=== PATIENT | male | born 1960 | race Caucasian/White ===

== ENCOUNTER → 2019-10-14 13:10 | Outpatient (CLI) | payer OTHER, SELFPAY | PROVIDERS: Visit Provider Urology | DX: N40.0 Benign prostatic hyperplasia without lower urinary tract symptoms (principal) | CPT/HCPCS: 36415; G0103 ==

== ENCOUNTER → 2019-12-30 12:36 | Outpatient (CLI) | payer OTHER, SELFPAY ==
--- NOTE | 2019-12-30 12:39 | XR_ITS ---
PROCEDURE: XR HAND RT MIN 3V CLINICAL INDICATION: right hand pain/ ganglion cyst COMPARISON: No exams were available for comparison FINDINGS: No fracture or dislocation. No lytic or blastic change. There is normal mineralization. The joint spaces are well-preserved. No significant degenerative/arthritic changes. No erosive changes evident. Other findings:None. IMPRESSION: Negative right hand Dictated by: Roney Laws MD 12/30/2019 16:10 Electronically signed by Roney Laws MD in [place] 12/30/2019 16:10
--- NOTE | 2019-12-30 15:32 | ECG_ITS ---
APPROVED REPORT Exam: Resting ECG HR:66 bpm ECG Measurements Heart Rate 66 AXES OK 174 P 40 QRSd 80 QRS 2 QT 398 T 31 QTc 417 <Conclusion> Normal sinus rhythm Normal ECG Electronically signed by : Win Stearns, 12/31/2019 16:11:30
== END ==
PROVIDERS: PCP Internal Medicine Adolescent Medicine; Visit Provider Orthopaedic Surgery
DX: M79.641 Pain in right hand (principal)
CPT/HCPCS: 73130; 93005

== ENCOUNTER → 2019-12-30 14:47 | Outpatient (CLI) | payer OTHER, SELFPAY ==
--- NOTE | 2019-12-30 14:52 | XR_ITS ---
PROCEDURE: XR CHEST 2V CLINICAL HISTORY: preop evaluation COMPARISON: No exams were available for comparison FINDINGS: The cardiomediastinal silhouette and pulmonary vascularity are within normal limits. Hyper lucency is present in the right apex consistent with bullous change. This had a similar appearance on the previous exam. The remaining lungs are clear. No acute bony abnormalities. IMPRESSION: Right apical bulla otherwise negative. No change with no acute finding Dictated by: Roney Laws MD 12/30/2019 15:41 Electronically signed by Roney Laws MD in [place] 12/30/2019 15:41
[2019-12-30 15:43] LABS: Basophils % 0.7 % (0.1-2.0); Eosinophils # 0.1 K/mm3 (0.0-0.4); Eosinophils % 1.8 % (0.1-12.0); Hematocrit 47.6 % (42.0-52.0); Hemoglobin 15.5 g/dL (14.1-18.0); Lymphocytes # 2.2 K/mm3 (0.7-4.5); Lymphocytes % 34.8 % (10-50); Mean Corpuscular HGB Conc 32.7 g/dL (31.8-35.4); Mean Corpuscular Hemoglobin 29.7 pg (27.0-31.2); Mean Corpuscular Volume 90.9 fl (80-94); Mean Platelet Volume 9.1 fl (7.4-10.4); Monocytes # 0.4 K/mm3 (0.1-1.0); Monocytes % 6.5 % (1.7-9.3); Neutrophils # 3.5 K/mm3 (1.8-7.8); Neutrophils % 56.1 % (37.0-80.0); Platelet Count 240 K/mm3 (142-424); Red Blood Count 5.24 M/mm3 (4.60-6.20); White Blood Count 6.3 K/mm3 (4.8-10.8)
[2019-12-30 17:04] LABS: Alanine Aminotransferase 18 U/L (12-78); Albumin Level 4.5 g/dl (3.5-5.0); Albumin/Globulin Ratio 1.4 (1.1-1.8); Alkaline Phosphatase 81 U/L (38-126); Anion Gap 13.5 mEq/L (5-15); Aspartate Amino Transferase 23 U/L (17-59); Bilirubin,Total 0.5 mg/dl (0.2-1.3); Blood Urea Nitrogen 14 mg/dl (9-20); Calcium 9.9 mg/dl (8.4-10.2); Carbon Dioxide 29 mmol/L (22.0-30.0); Chloride 100 mmol/L (98-107); Estimated Glomerular Filt Rate 76 ml/min (>60); GFR (African American) 92 ML/MIN (>60); Globulin 3.3 g/dL (1.3-3.2); Glucose 85 mg/dl (74-100); Potassium 4.5 mmoL/L (3.5-5.1); Sodium 138 mmol/L (136-145); Total Protein,Serum 7.8 g/dl (6.3-8.2)
== END ==
PROVIDERS: PCP Internal Medicine Adolescent Medicine; Visit Provider Orthopaedic Surgery
DX: Z01.818 Encounter for other preprocedural examination (principal); M79.641 Pain in right hand; M25.841 Other specified joint disorders, right hand
CPT/HCPCS: 36415; 71046; 80053; 85025

== ENCOUNTER → 2020-10-14 11:52 | Outpatient (CLI) | payer OTHER, SELFPAY ==
[2020-10-15 09:43] LABS: PSA, Free 0.08 ng/mL; Prostate Specific Ag 0.3 ng/mL (0.0-4.0)
== END ==
PROVIDERS: Visit Provider Urology
DX: N40.1 Benign prostatic hyperplasia with lower urinary tract symptoms (principal); N13.8 Other obstructive and reflux uropathy
CPT/HCPCS: 36415; 84153; 84154

== ENCOUNTER → 2021-09-01 19:03 | Outpatient (CLI) | payer OTHER, SELFPAY ==
[2021-09-01 19:57] LABS: Chloride 104 mmol/L (98-107); Sodium 139 mmol/L (136-145)
[2021-09-01 19:58] LABS: Potassium 4.7 mmoL/L (3.5-5.1)
[2021-09-01 20:00] LABS: Alanine Aminotransferase 16 U/L (12-78); Albumin Level 4.1 g/dl (3.5-5.0); Albumin/Globulin Ratio 1.2 (1.1-1.8); Alkaline Phosphatase 89 U/L (38-126); Anion Gap 11.7 mEq/L (5-15); Aspartate Amino Transferase 25 U/L (17-59); Bilirubin,Total 0.5 mg/dl (0.2-1.3); Blood Urea Nitrogen 19 mg/dl (9-20); Carbon Dioxide 28 mmol/L (22.0-30.0); Cholesterol 277 mg/dl (140-200); Estimated Glomerular Filt Rate 86 ml/min (>60); GFR (African American) 103 ML/MIN (>60); Globulin 3.5 g/dL (1.3-3.2); Total Protein,Serum 7.6 g/dl (6.3-8.2); Triglycerides 183 mg/dl (30-150); VLDL Cholesterol 37 mg/dL (0-40)
[2021-09-01 20:01] LABS: Calcium 9.3 mg/dl (8.4-10.2); Chol/HDL Ratio 6.4 (1-3.5); Glucose 98 mg/dl (74-100); HDL Cholesterol 43 mg/dl (40-60)
== END ==
PROVIDERS: Visit Provider Internal Medicine Adolescent Medicine
DX: I10 Essential (primary) hypertension (principal); E78.5 Hyperlipidemia, unspecified
CPT/HCPCS: 80053; 80061

== ENCOUNTER → 2021-11-03 13:51 | Outpatient (CLI) | payer OTHER, SELFPAY ==
[2021-11-03 15:41] LABS: Prostate Specific Ag Screen 0.4 ng/ml (0.0-4.0)
== END ==
PROVIDERS: PCP Internal Medicine Adolescent Medicine; Visit Provider Urology
DX: N40.1 Benign prostatic hyperplasia with lower urinary tract symptoms (principal); Z12.5 Encounter for screening for malignant neoplasm of prostate
CPT/HCPCS: 36415; G0103

== ENCOUNTER 2023-03-20 07:21 | Day surgery (SDC) | payer OTHER, SELFPAY ==
[2023-03-19 10:06] VITALS: BMI 24.1
[2023-03-20 07:41] VITALS: BP 130/81; PULSE 89; RESP 17; TEMP 36.1; O2SAT 93
--- NOTE | 2023-03-20 08:22 | P.PCN_ITS ---
Procedure: Date: 03/20/23 Patient Date of :: 1960 Procedure Performed:: Esophagogastroduodenoscopy with biopsy Colonoscopy Indications:: History of Max's esophagus History of colon polyps Note: His last esophagogastroduodenoscopy/colonoscopy was in December 2019. His gastroesophageal junction was at 42 cm and he did have a very small sliding hiatal hernia noted. A calcified polyp at D2/D3 was biopsied. Pathology benign. No visual Max's-type changes were noted; however, biopsies did reveal metaplasia without dysplasia. Hemorrhoidal cushions, sigmoid diverticulosis, poor relaxation, and a moderate bowel preparation were noted on colonoscopy. Right colon polyps were excised. Performing Provider:: Phani Dorado MD Referring Provider:: . Sedation:: Monitored anesthesia care Procedure:: After informed consent was obtained the patient was taken to the endoscopy suite. Sedation ensued after the patient was transferred to the left lateral decubitus position. Pulse, blood pressure, and oxygen saturation were monitored throughout the procedure. The endoscope was advanced beyond the duodenal bulb. Retroflexion within the gastric lumen was accomplished. The gastroscope was ca refully removed. Digital rectal exam revealed no significant abnormality. The colonoscope was placed in position. The entire colon was evaluated. The colonoscope was carefully removed and the patient was transferred to recovery in stable condition. Please see findings and specimens below for detail. Findings:: Gastroesophageal junction at 42 cm Sliding hiatal hernia No obvious Max's Bowel preparation fair to moderate Hemorrhoids Scattered (most pronounced in sigmoid) diverticulosis Specimens:: Antral biopsy Multiple distal esophageal biopsies at 41 cm Recommendations:: Follow-up pathology Continue proton pump inhibition Repeat EGD in 2 years (pending results of pathology) Repeat colonoscopy in 3-5 years Complications:: No immediate Estimated blood obtained (mL): 1
[2023-03-20 08:32] VITALS: O2SAT 98
[2023-03-20 09:24] VITALS: BP 89/57; PULSE 58; RESP 14; TEMP 36.1; O2SAT 93
[2023-03-20 09:34] VITALS: BP 100/54; PULSE 52; RESP 15; O2SAT 96
[2023-03-20 09:44] VITALS: BP 107/66; PULSE 57; RESP 17; O2SAT 97
[2023-03-20 09:54] VITALS: BP 106/81; PULSE 52; RESP 16; TEMP 36.6; O2SAT 99
--- NOTE | 2023-03-20 10:32 | P.PN_ITS ---
[facility] Disclaimer: The information contained in this section may have been updated after the patient was seen, as this information can be updated by other users. Medical History Allergies Enlarged prostate Hemorrhoid History of cataract History of diverticulitis History of gastroesophageal reflux (GERD) Hyperlipidemia Hypertension Surgical History History of cataract surgery History of removal of cyst Family History Other Family history of diabetes mellitus type II No significant family history Social History Smoking Status: Never smoker alcohol intake: never counseling provided: none substance use type: denies use current occupational status: employed Travel in the last 8 weeks: None household members: spouse housing: house current occupation: [employer] caffeine: Yes [facility] [employer] Anesthesia Checklist Patient Identification Patient Identification: Arm Band and Family Structural Data Admitted From: Home Planned Operative Procedure/s: EGD, COLONOSCOPY. Consent for Planned Operative Procedure(s) Verified: Yes Verified Documents: Surgical Consent and History and Physical NPO Status Verified Time NPO: 00:00 Additional verifications Patient : No Anesthesia Reactions: No Hx Blood Transfusions: No Blood Transfusion Reaction: No Cephalosporin Allergy: No Previous Colonoscopy: Yes Airway Assessment C-Spine Mobility Assessed: Yes TMJ Mobility Assessed: Yes Dentition: Good Dentition Neurological Assessment Level of Consciousness: Awake, Alert, Appropriate and Follows Commands Hx Seizures: No Numbness or tingling in extremities: No Anesthesia Plan Anesthesia Risk discussed: Yes ASA Class: II Anesthesia Type: MAC
== END 2023-03-20 10:00 | disposition home or self-care (01) ==
PROVIDERS: PCP Internal Medicine Adolescent Medicine; Visit Provider Surgery
PROC: 0DJ08ZZ Inspection of Upper Intestinal Tract, Via Natural or Artificial Opening Endoscopic (ICD-10-PCS; CPT 43235; principal; 2023-03-20 08:30)
DX: Z12.11 Encounter for screening for malignant neoplasm of colon (principal); Z86.010 Personal history of colon polyps; K31.9 Disease of stomach and duodenum, unspecified; K57.30 Diverticulosis of large intestine without perforation or abscess without bleeding; K44.9 Diaphragmatic hernia without obstruction or gangrene; Z79.899 Other long term (current) drug therapy; K64.8 Other hemorrhoids
CPT/HCPCS: 43239; 45378; J2704

== ENCOUNTER → 2023-04-04 07:49 | Outpatient (CLI) | payer OTHER, SELFPAY ==
--- NOTE | 2023-04-04 07:49 | FL_ITS ---
FINAL REPORT CLINICAL HISTORY: dysphagia FINDINGS: ESOPHAGRAM HISTORY: Dysphagia. PROCEDURE: The patient ingested barium. Effervescent crystals were also administered. Spot and overhead films were obtained. Fluoroscopy time: 1 minute 16 seconds. 14 radiographs were obtained. FINDINGS: The esophagus is normal. There is a small sliding type hiatal hernia. There is no gastroesophageal reflux. Peristalsis is normal. A 13 mm barium tablet passes through the esophagus and into the stomach without delay. IMPRESSION: Small sliding-type hiatal hernia. Films reviewed , interpreted and dictated by Dr. Alvarado. Transcribed by Lee Diaz PA-C. Reviewed, Interpreted and Dictated by Derek Alvarado MD Transcribed by SEDRICK Araujo Authenticated and [facility]
== END ==
PROVIDERS: PCP Internal Medicine Adolescent Medicine; Visit Provider Surgery
DX: R13.10 Dysphagia, unspecified (principal)
CPT/HCPCS: 74220

== ENCOUNTER → 2023-04-12 12:47 | Outpatient (CLI) | payer OTHER, SELFPAY ==
--- NOTE | 2023-04-12 12:50 | FL_ITS ---
FINAL REPORT CLINICAL HISTORY: 1.32 fl time difficulty swallowing FINDINGS: MODIFIED BARIUM SWALLOW History: Dysphagia FINDINGS: Fluoroscopy was provided for the speech pathologist to evaluate the swallowing mechanism. The patient was given several different consistencies of barium while the swallow was visualized fluoroscopically. The report of the speech pathologist should be consulted prior to making dietary decisions. FLUOROSCOPY TIME: 1.3 minutes IMPRESSION: Modified barium swallow under fluoroscopic guidance. Please see the report of the speech pathologist for Dietary recommendations. Films reviewed , interpreted and dictated by Dr. Elizabeth Transcribed by Jax Chen PA-C. Reviewed, Interpreted and Dictated by Blake Elizabeth III, MD Transcribed by SEDRICK Doan Authenticated and [facility]
--- NOTE | 2023-04-12 14:14 | HMH.SLMBS2 ---
Speech & Language Evaluation Speech/Language Mod Barium Swallow Start: 04/12/23 13:48 Freq: once Status: Complete Protocol: Document 04/12/23 13:49 LING (Rec: 04/12/23 14:14 LING [id number]) General Information General Current Food Consistency Regular,Thin Liquids Dentition Poor Dentition Oxygen Status Room Air Facial Symmetry Patient Baseline Patient Orientation Person,Place,Time,Situation Ability to Follow Directions Excellent Communication Ability No Impairment MBS Recommendations Diet Dietary Recommendations Regular,Thin Liquids Treatment/Strategies Strategy/Precaution Recommend Sitting Upright (90 deg),Small Bites and Sips,Alternate Liquids/Solids Mod Barium Swallow Impressions Summary and Impressions Oral Phase Impression Minimal Impairment Oral Phase Summary Minimal oral dysfunction noted on MBSS. Premature spillage of thin liquids to the valleculae noted x1 with thin liquid wash after regular solid. Likely 2' mild back of tongue fatigue. Mastication was WFL, AP transit was timely , no significant oral residue noted. Pharyngeal Phase Impression Minimal Impairment Pharyngeal Phase Summary Minimal pharyngeal impairment. Adequate airway protection was noted with all consistencies trialed. Decreased epiglottic inversion 2' decreased hyolaryngeal movement and elongated epiglottis. Mild vallecular residue with puree and moderate with solids 2' decreased epiglottic inversion and decreased pharyngeal constriction. Speech/Language MBS Assessment/Goals/Plan Assessment Date of Evaluation: 04/12/23 Evaluation Type Initial Certification Assessment/Problems Pt c/o coughing and sore throat. Does Patient Qualify for Service No Qualify/Failure Comment Given results of MBSS, no further skilled ST services are warranted at this time. Recommendations PHYSICIAN CERTIFICATION: The specified therapy services are required, authorized, and reviewed every 30 days. Diet Recommendations Normal Liquid Type Recommen
== END ==
PROVIDERS: PCP Internal Medicine Adolescent Medicine; Visit Provider Surgery
DX: K22.70 Barrett's esophagus without dysplasia (principal)
CPT/HCPCS: 70371; 92611

== ENCOUNTER 2024-07-13 18:56 | Emergency (ER) | payer MEDICARE, OTHER, SELFPAY ==
[2024-07-13 18:57] VITALS: BP 141/79; PULSE 71; RESP 17; TEMP 36.7; O2SAT 98; BMI 24.3
--- NOTE | 2024-07-13 19:55 | ED_ITS ---
Discharge Plan Disposition Patient Disposition: Home, Self-Care Condition: Good Prescriptions Prescriptions: No Action diphenhydramine HCl [Benadryl Allergy] 25 mg tablet 25 mg PO QHS PRN (Reason: allergy symptoms) docusate sodium [Stool Softener] 50 mg capsule 50 mg PO QHS rosuvastatin [Crestor] 5 mg tablet 20 mg PO DAILY tamsulosin [Flomax] 0.4 mg capsule 0.4 mg PO DAILY omeprazole 40 mg capsule,delayed release(DR/EC) 40 mg PO DAILY vwojukgua-vwkfunha-vrrzt-w.pet [Preparation H Maximum Strength] 0.25-1 % cream 1 applic [place] BID finasteride 5 mg tablet 5 mg PO DAILY amlodipine 10 MG tablet 10 mg PO DAILY calcium polycarbophil 625 MG tablet 2 tab PO DAILY cholecalciferol (vitamin D3) 1,000 UNIT capsule 1,000 unit PO DAILY Referrals Follow up/Referrals: Yao Monroe DO [Staff Physician] - See instructions Win Stearns MD [Primary Care Provider] - See instructions Activity Restrictions/Add. Instructions Additional Instructions/Restrictions: Please call in the morning to make a follow-up with orthopedics. Please wear your brace until seen by orthopedics. Return to ER for any worsening signs or symptoms as needed. Clinical Impressions Clinical Impression: Fracture of triquetrum of left wrist Qualifiers: Encounter type: initial encounter Fracture type: closed Fracture alignment: nondisplaced Qualified Code(s): S62.115A - Nondisplaced fracture of triquetrum [cuneiform] bone, left wrist, initial encounter for closed fracture Instructions Patient Instructions: DI for Wrist Fracture Print Language Print Language: Faroese Discharge ED Provider: Ck Colby General Adult HPI <SEDRICK Nuñez - Last Filed: 07/13/24 22:25> General Chief complaint: Extremity Injury, Upper Stated complaint: [id number] LT hand inj Time Seen by Provider: 07/13/24 19:55 History of Present Illness HPI narrative: Patient presents for left hand injury. Patient was putting up hay and abruptly got stuck with a piece of equipment and he jammed my hand . Patient however finished his workday and presented for evaluation. He reports painful range of motion particularly at the base of the hand/wrist. He denies any numbness or tingling. Related Data Home Medications ?Medication ?Instructions ?Recorded ?Confirmed diphenhydramine HCl 25 mg tablet 25 mg PO QHS PRN allergy symptoms 03/13/18 04/25/23 (Benadryl Allergy) docusate sodium 50 mg capsule 50 mg PO QHS stool softener 03/13/18 04/25/23 (Stool Softener) amlodipine 10 mg tablet 10 mg PO DAILY blood pressure 04/02/18 04/25/23 calcium polycarbophil 625 mg tablet 2 tab PO DAILY bowel regulation 04/04/18 04/25/23 cholecalciferol (vitamin D3) 25 1,000 unit PO DAILY Supplement 04/04/18 04/25/23 mcg (1,000 unit) capsule omeprazole 40 mg capsule,delayed 40 mg PO DAILY GERD 06/25/18 04/25/23 release phenylephrine 0.25 %-pramoxine 1 1 applic [place] BID rash 06/25/18 04/25/23 %-glycerin-wh.petrolatum rectal cream (Preparation H Maximum Strength) tamsulosin 0.4 mg capsule (Flomax) 0.4 mg PO DAILY prostate 06/25/18 04/25/23 finasteride 5 mg tablet 5 mg PO DAILY urinary retention 03/20/23 04/25/23 rosuvastatin 5 mg tablet (Crestor) 20 mg PO DAILY Cholesterol 03/28/23 04/25/23 Allergies Allergy/AdvReac Type Severity Reaction Status Date / Time acetaminophen [From Tylenol] Allergy Unknown swelling Verified 04/25/23 09:11 ibuprofen Allergy Unknown Swelling Verified 04/25/23 09:11 naproxen [From Aleve] Allergy Unknown Swelling Verified 04/25/23 09:11 pain pills Allergy swelling Uncoded 04/25/23 09:11 [facility] <SEDRICK Nuñez - Last Filed: 07/13/24 22:25> [facility] Disclaimer: The information contained in this section may have been updated after the patient was seen, as this information can be updated by other users. Medical History Allergies Enlarged prostate Hemorrhoid History of cataract History of diverticulitis History of gastroesophageal reflux (GERD) Hyperlipidemia Hypertension Surgical History History of cataract surgery History of colonoscopy History of removal of cyst RIGHT HAND Family History Other Family history of diabetes mellitus type II No significant family history Social History Smoking Status: Former smoker tobacco type: smokeless tobacco alcohol intake: never counseling provided: none substance use type: denies use current occupational status: employed Travel in the last 8 weeks: None household members: spouse housing: house current occupation: [employer] caffeine: Yes <SEDRICK Nuñez - Last Filed: 07/13/24 22:25> ROS Obtained: Yes Systems reviewed as appropriate & no additional complaints except as documented Physical Exam <SEDRICK Nuñez - Last Filed: 07/13/24 22:25> General General appearance: alert and in no apparent distress Respiratory Respiratory exam: Present normal lung sounds bilaterally Cardiovascular Cardiovascular exam: Present regular rate Neurological Exam Neurological exam: Present alert and oriented X3 Medical Decision Making <SEDRICK Nuñez - Last Filed: 07/13/24 22:25> Myron Inquiry Pt receiving controlled substance: No Vital Signs: 07/13/24 18:57 07/13/24 22:34 Temperature 98.1 F 98 F Temperature Source Oral Oral Pulse Rate 68 Pulse Rate [Left Radial] 71 Respiratory Rate 17 16 Blood Pressure 138/72 Blood Pressure [Left Arm] 141/79 H Blood Pressure Mean [Left Arm] 99 Blood Pressure Source [Left Arm] Automatic Cuff Blood Pressure Position [Left Arm] Sitting 02 Sat by Pulse Oximetry 98 Oxygen Delivery Method Room Air Room Air Orders (Tests/Meds): ORDERS Category Date Time Status CT wrist LT wo con Stat Cat Scan 07/13/24 21:58 Completed Hand XR left minimum 3 views [XR hand LT min 3V] Stat Exams 07/13/24 20:01 Completed Wrist XR left minimum 3 views [XR wrist LT min 3V] Stat Exams 07/13/24 20:01 Completed Medical Decision Narrative: In summary patient is a 64-year-old male who presents to the emergency department for evaluation of left hand injury. Patient is hemodynamically stable upon arrival, afebrile. Physical exam is remarkable for swelling at the base on the dorsum aspect of his left hand with no palpable bony deformity. Patient has painful but full range of motion at both the wrist and the fingers. He is neurovascular intact distally. Differential diagnosis includes sprain versus fracture. Initial workup will be conducted with plain film x-rays. Initial interventions were considered however patient declined any anti- inflammatories or pain medicine. Initial workup reviewed by me [hematologic labs are remarkable for... Imaging remarkable for... Urinalysis remarkable for]. Upon repeat evaluation [patient had acceptable resolution of symptoms, had persistent pain for which additional interventions were conducted (describe interventions), tolerated p.o., was ambulatory, etc.]. Given this [patient is appropriate for discharge at this time and will be discharged with a prescription for... The case was discussed with hospital medicine regarding management and they will admit the patient their service for continued evaluation at this time... Etc.] <Ck Colby MD - Last Filed: 07/15/24 16:33> Vital Signs: 07/13/24 18:57 07/13/24 22:34 Temperature 98.1 F 98 F Temperature Source Oral Oral Pulse Rate 68 Pulse Rate [Left Radial] 71 Respiratory Rate 17 16 Blood Pressure 138/72 Blood Pressure [Left Arm] 141/79 H Blood Pressure Mean [Left Arm] 99 Blood Pressure Source [Left Arm] Automatic Cuff Blood Pressure Position [Left Arm] Sitting 02 Sat by Pulse Oximetry 98 Oxygen Delivery Method Room Air Room Air Orders (Tests/Meds): ORDERS Category Date Time Status CT wrist LT wo con Stat Cat Scan 07/13/24 21:58 Completed Hand XR left minimum 3 views [XR hand LT min 3V] Stat Exams 07/13/24 20:01 Completed Wrist XR left minimum 3 views [XR wrist LT min 3V] Stat Exams 07/13/24 20:01 Completed Medical Decision Narrative: In summary patient is a 64-year-old male who presents to the emergency department for evaluation of left hand injury. Patient is hemodynamically stab le upon arrival, afebrile. Physical exam is remarkable for swelling at the base on the dorsum aspect of his left hand with no palpable bony deformity. Patient has painful but full range of motion at both the wrist and the fingers. He is neurovascular intact distally. Differential diagnosis includes sprain versus fracture. Initial workup will be conducted with plain film x-rays. Initial interventions were considered however patient declined any anti-inflammatories or pain medicine. Earnestine: I assumed primary responsibility for this patient. Initial workup reviewed by me, patient has what appears to be triquetral fracture on lateral wrist. Orthopedic surgery was contacted and case was discussed, recommended CT wrist for further management, CT wrist was obtained and independently inte rpreted for triquetral fracture, consistent with x-rays. Patient was placed in removable prefabricated splint for his wrist. Patient requires orthopedic bracing due to weakness or deformity requiring stabilization. The use of this brace will benefit the patient's functionality and prevent further injury. I was consulted by the [facility], and we discussed the complexity of the problems being addressed. I approved the treatment and management plan for this patient's care in the Emergency Department, thus performing a substantive portion of the medical decision making. Ck Colby MD Critical Care <SEDRICK Nuñez - Last Filed: 07/13/24 22:25> Critical Care Time Critical Care Time: No
--- NOTE | 2024-07-13 20:01 | XR_ITS ---
PROCEDURE INFORMATION: Exam: XR Left Hand Exam date and time: 07/13/2024 8:13 PM Age: 64 years old Clinical indication: Pain; Wrist; Left; Additional info: Injury, pain, swelling TECHNIQUE: Imaging protocol: Radiologic exam of the left hand. Views: 3 or more views. COMPARISON: No relevant prior studies available. FINDINGS: Bones/joints: Mild radiocarpal joint space narrowing. No fracture or dislocation. Soft tissues: Dorsal wrist soft tissue swelling. IMPRESSION: Soft tissue swelling.
--- NOTE | 2024-07-13 20:01 | XR_ITS ---
PROCEDURE INFORMATION: Exam: XR Left Wrist Exam date and time: 07/13/2024 8:14 PM Age: 64 years old Clinical indication: Pain; Wrist; Left; Additional info: Injury, pain, swelling TECHNIQUE: Imaging protocol: Radiologic exam of the left wrist. Views: 3 or more views. COMPARISON: CR XR HAND LT MIN 3V 07/13/2024 8:13 PM FINDINGS: Bones/joints: Mild radiocarpal joint space narrowing. Along the dorsal aspect of the proximal wrist is a small bone fragment estimated to measure approximately 4 mm in size. No subluxation or dislocation. Soft tissues: Dorsal wrist soft tissue swelling. IMPRESSION: Partially evaluated proximal carpal avulsion fracture. Consider CT scan to evaluate source of the bone fragment
--- NOTE | 2024-07-13 21:58 | CT_ITS ---
PROCEDURE INFORMATION: Exam: CT Left Upper Extremity Without Contrast, Wrist Exam date and time: 07/13/2024 10:21 PM Age: 64 years old Clinical indication: Abnormal findings; Abnormal imaging study of the limbs; Left wrist; Additional info: Left wrist injury, abnormal wrist x-ray TECHNIQUE: Imaging protocol: Computed tomography of the left upper extremity without contrast. Exam focused on the wrist. Radiation optimization: All CT scans at this facility use at least one of these dose optimization techniques: automated exposure control; mA and/or kV adjustment per patient size (includes targeted exams where dose is matched to clinical indication); or iterative reconstruction. COMPARISON: CR XR WRIST LT MIN 3V 07/13/2024 8:14 PM FINDINGS: Bones/joints: There is a small comminuted avulsion fracture arising from the dorsum of the triquetral bone with posterior radial intra-articular extension. Mild radiocarpal joint space narrowing. Subcortical cyst of the scaphoid. No subluxation or dislocation. Soft tissues: Dorsal wrist soft tissue swelling. IMPRESSION: Acute avulsion fracture of the triquetral bone as described.
[2024-07-13 22:34] VITALS: BP 138/72; PULSE 68; RESP 16; TEMP 36.6; O2SAT 95
== END 2024-07-13 22:37 | disposition home or self-care (01) ==
PROVIDERS: Emergency Provider Emergency Medicine; PCP Internal Medicine Adolescent Medicine
DX: S62.115A Nondisplaced fracture of triquetrum [cuneiform] bone, left wrist, initial encounter for closed fracture (principal); M79.642 Pain in left hand; W22.8XXA Striking against or struck by other objects, initial encounter
CPT/HCPCS: 73110; 73130; 73200; 99284

== ENCOUNTER 2024-07-23 10:00 | Outpatient (CLI) | payer MEDICARE, OTHER, SELFPAY ==
--- NOTE | 2024-07-23 10:04 | XR_ITS ---
FINAL REPORT CLINICAL HISTORY: Left wrist pain COMPARISON: None FINDINGS: LEFT WRIST Three views demonstrate an ossific density over the dorsal aspect of the proximal carpal row measuring 4 mm. This may represent a triquetral fracture, age indeterminate and is best seen on the lateral view. The visualized joint spaces are normally aligned. The soft tissues are unremarkable. IMPRESSION: Possible triquetral fracture, age indeterminate. Reviewed, Interpreted and Dictated by Derek Alvarado MD Transcribed by Casie Bowles Authenticated and [facility]
== END 2024-07-23 23:59 | disposition home or self-care (01) ==
LOC: RAD 10:02
PROVIDERS: PCP Internal Medicine Adolescent Medicine; Visit Provider Physician Assistant
DX: S62.115A Nondisplaced fracture of triquetrum [cuneiform] bone, left wrist, initial encounter for closed fracture (principal)
CPT/HCPCS: 73110

== ENCOUNTER 2024-08-07 12:51 | Outpatient (CLI) | payer MEDICARE, OTHER, SELFPAY ==
--- NOTE | 2024-08-07 12:58 | XR_ITS ---
FINAL REPORT CLINICAL HISTORY: PAIN FINDINGS: RIGHT KNEE 3 views of the right knee were obtained. There is no acute fracture or dislocation. There is mild sharpening of the tibial spines. Visualized joint spaces are normally aligned. Soft tissues are unremarkable. IMPRESSION: No acute bony abnormality. Reviewed, Interpreted and Dictated by Derek Alvarado MD Transcribed by Deidra Grimaldo Authenticated and [facility]
== END 2024-08-07 23:59 | disposition home or self-care (01) ==
LOC: RAD 12:54
PROVIDERS: PCP Internal Medicine Adolescent Medicine; Visit Provider Internal Medicine Adolescent Medicine
DX: M25.561 Pain in right knee (principal)
CPT/HCPCS: 73562

== ENCOUNTER 2024-08-13 08:23 | Outpatient (CLI) | payer MEDICARE, OTHER, SELFPAY ==
--- NOTE | 2024-08-13 08:28 | XR_ITS ---
FINAL REPORT CLINICAL HISTORY: left wrist fx follow up COMPARISON: 07/23/2024 FINDINGS: LEFT WRIST Three views demonstrate persistent calcification at the dorsal aspect of the wrist which may represent a triquetral fracture. The appearance is stable from the prior exam. The visualized joint spaces are normally aligned. The soft tissues are unremarkable. IMPRESSION: Stable appearing possible triquetral fracture. Reviewed, Interpreted and Dictated by Blake Elizabeth III, MD Transcribed by Casie Bowles Authenticated and [facility]
== END 2024-08-13 23:59 | disposition home or self-care (01) ==
LOC: RAD 08:26
PROVIDERS: PCP Internal Medicine Adolescent Medicine; Visit Provider Orthopaedic Surgery
DX: S62.115A Nondisplaced fracture of triquetrum [cuneiform] bone, left wrist, initial encounter for closed fracture (principal)
CPT/HCPCS: 73110

== ENCOUNTER 2024-09-02 12:44 | Outpatient (CLI) | payer MEDICARE, OTHER, SELFPAY ==
--- NOTE | 2024-09-02 | CA_ITS ---
FINAL REPORT TECHNIQUE: Real-time imaging was performed of the extracranial carotid arteries in transverse and longitudinal planes with color duplex evaluation of blood flow velocity. Spectral analysis was performed. The cervicovertebral arteries were also examined. Stenosis evaluation based on elevated velocity criteria. CLINICAL HISTORY: facial palsy hearing loss L ear FINDINGS: FINDINGS: RIGHT CAROTID: CCA PSV: 128 cm/sec ICA PSV: 94 cm/sec ECA PSV: 128 cm/sec ICA/CCA systolic flow velocity ratio: 0.73 Trace plaque in the proximal ICA. Narrowing is classified in the less than 50% category. LEFT CAROTID: CCA PSV: 148 cm/sec ICA PSV: 86 cm/sec ECA PSV: 173 cm/sec ICA/CCA systolic flow velocity ratio: 0.78 Trace plaque in the proximal ICA. Narrowing is classified in the less than 50% category. VERTEBRALS: Vertebral arteries are patent with antegrade flow and expected spectral waveforms. IMPRESSION: No hemodynamically significant carotid artery stenosis. Patent vertebral arteries. Reviewed, Interpreted and Dictated by Marcin Whitley MD Transcribed by Kristina Pearson Authenticated and . [facility]
--- NOTE | 2024-09-02 14:01 | XR_ITS ---
PROCEDURE INFORMATION: Exam: XR Left Wrist Exam date and time: 09/02/2024 2:05 PM Age: 64 years old Clinical indication: Pain and injury or trauma; Other: Tractor; Puncture and swelling (edema); Hand; Left; Additional info: Fracture TECHNIQUE: Imaging protocol: Radiologic exam of the left wrist. Views: 3 or more views. COMPARISON: CR XR WRIST LT MIN 3V 08/13/2024 8:30 AM FINDINGS: Bones/joints: Sliver of bone along the dorsal aspect of the carpal bones may represent dorsal chip fracture of unknown age. It was present on August 13. Soft tissues: Normal. IMPRESSION: Sliver of bone along the dorsal aspect of the carpal bones may represent dorsal chip fracture of unknown age. It was present on August 13.
== END 2024-09-02 23:59 | disposition home or self-care (01) ==
PROVIDERS: PCP Internal Medicine Adolescent Medicine; Visit Provider Physician Assistant
DX: R20.2 Paresthesia of skin (principal); S62.115A Nondisplaced fracture of triquetrum [cuneiform] bone, left wrist, initial encounter for closed fracture
CPT/HCPCS: 73110; 93880

== ENCOUNTER 2024-09-08 15:55 | Outpatient (CLI) | payer MEDICARE, OTHER, SELFPAY ==
--- NOTE | 2024-09-08 16:02 | MR_ITS ---
PROCEDURE INFORMATION: Exam: MR Head Without Contrast Exam date and time: 09/08/2024 4:03 PM Age: 64 years old Clinical indication: Other: Facial palsy/ hearing loss lft ear TECHNIQUE: Imaging protocol: Magnetic resonance imaging of the head without contrast. COMPARISON: US CA CAROTID DUPLEX BI 09/02/2024 12:56 PM FINDINGS: Brain: Mildly tiny scattered periventricular and subcortical white matter hyperintensities are identified. There is no evidence of acute parenchymal hemorrhage, extra-axial collection, or acute infarction. There is no mass effect, midline shift, or downward herniation. Cerebral ventricles: Normal. No ventriculomegaly. Bones: Unremarkable. Paranasal sinuses: There is mild paranasal sinus mucosal thickening. Mastoid air cells: Normal as visualized. No mastoid effusion. Orbital cavities: Unremarkable. Soft tissues: Unremarkable. IMPRESSION: 1. No evidence of acute intracranial process. 2. Mildly tiny scattered white matter hyperintensities which are nonspecific. Differential considerations include chronic microvascular ischemic change, demyelinating disease, or gliosis from infectious/inflammatory source.
== END 2024-09-08 23:59 | disposition home or self-care (01) ==
LOC: RAD 15:57
PROVIDERS: PCP Internal Medicine Adolescent Medicine; Visit Provider Internal Medicine Adolescent Medicine
DX: G51.0 Bell's palsy (principal); H91.92 Unspecified hearing loss, left ear
CPT/HCPCS: 70551

== ENCOUNTER 2024-09-24 08:35 | Outpatient (CLI) | payer MEDICARE, OTHER, SELFPAY ==
--- NOTE | 2024-09-24 08:40 | XR_ITS ---
FINAL REPORT CLINICAL HISTORY: left wrist fx COMPARISON: 08/13/2024 FINDINGS: LEFT WRIST Three views demonstrate an ossific density overlying the proximal carpal row measuring 4 mm consistent with triquetral fracture, similar to the prior study. The visualized joint spaces are normally aligned. The soft tissues are unremarkable. IMPRESSION: Stable triquetral fracture. Reviewed, Interpreted and Dictated by Derek Alvarado MD Transcribed by Casie Bowles Authenticated and [facility]
== END 2024-09-24 23:59 | disposition home or self-care (01) ==
LOC: RAD 08:36
PROVIDERS: PCP Internal Medicine Adolescent Medicine; Visit Provider Physician Assistant
DX: S62.115A Nondisplaced fracture of triquetrum [cuneiform] bone, left wrist, initial encounter for closed fracture (principal)
CPT/HCPCS: 73110

== ENCOUNTER 2024-12-16 21:25 | Emergency (ER) | payer MEDICARE, MEDICAID, SELFPAY ==
[2024-12-16 21:28] VITALS: BP 140/80; PULSE 83; RESP 16; TEMP 36.8; O2SAT 98; BMI 24.1
[2024-12-16 21:53] VITALS: BP 126/74; PULSE 67; RESP 16; TEMP 36.7; O2SAT 95
[2024-12-16] MEDS: COCAINE 4% TOPICAL SOLN 4ML BOTTLE 1 ML TP (22:03)
[2024-12-16] MEDS: LIDOCAINE 2% UROJET 10ML TP (22:03)
[2024-12-16] MEDS: EPINEPHrine 1 MG/ML AMPUL TP (22:04)
--- NOTE | 2024-12-16 22:07 | PC.NURSE ---
medication placed on gauze until saturated and placed on hemorrhoids
--- NOTE | 2024-12-16 22:10 | ED_ITS ---
Discharge Plan Disposition Patient Disposition: Home, Self-Care Prescriptions Prescriptions: New Preparation H Maximum Strength 0.25-1 % cream 1 applic HI TID PRN (Reason: rectal discomfort) Qty: 26 1RF No Action tamsulosin [Flomax] 0.4 mg capsule 0.4 mg PO DAILY omeprazole 40 mg capsule,delayed release(DR/EC) 40 mg PO DAILY mnlxbwgyg-qvycmsss-totap-w.pet [Preparation H Maximum Strength] 0.25-1 % cream 1 applic HI BID rosuvastatin 20 mg tablet 20 mg PO DAILY finasteride 5 mg tablet 5 mg PO DAILY amlodipine 10 MG tablet 10 mg PO DAILY calcium polycarbophil 625 MG tablet 2 tab PO DAILY cholecalciferol (vitamin D3) 1,000 UNIT capsule 1,000 unit PO DAILY Referrals Follow up/Referrals: Win Stearns MD [Primary Care Provider] - See instructions Phani Dorado MD [Staff Physician] - See instructions Activity Restrictions/Add. Instructions Additional Instructions/Restrictions: Begin doing sitz baths 2-3 times daily with Epsom salt and a couple inches of warm water for 15 to 20 minutes. Continue taking her stool softener daily until having 1-2 soft bowel movements. Topicals can also help. Call Dr. Dorado's office, information here, tomorrow 12/17 to schedule follow-up appointment for banding. Also talk to your family doctor about this visit to the emergency department to ensure improvement and follow-up. Clinical Impressions Clinical Impression: Hemorrhoid prolapse, Rectal pain Print Language Print Language: [place] Discharge ED Provider: Ck Colby General Adult HPI General Chief complaint: PAIN Stated complaint: poss hemorrhoids Time Seen by Provider: 12/16/24 21:30 Mode of Arrival: Ambulatory Source of Information: Patient Limitations: No Limitations Description of Symptoms (Recalled from ER Triage Doc. by RN): patient has been having bloody bowel movements went 6 times yesterday and believes this is what caused the BRBPR, 3 x today bowel movements. History of Present Illness HPI narrative: Please note that above description of symptoms, in this electronic medical record under categorization of recalled from ER triage doctor by RN are reflective of an initial nursing assessment, however, is not reflective of my full history and physical exam that was personally taken and clarified. Consequentially, this preceding description of symptoms, which may include the patient's categorized chief complaint in the EMR, do not reflect my personal clinical impression, and the ultimate description of history of present illness and patient stated complaints should be deferred to this section of the note. Unless stated otherwise or congruent with this section of the note, additional signs, symptoms, or incongruence should be interpreted as inaccurate with my clinical impression. Related Data Home Medications ?Medication ?Instructions ?Recorded ?Confirmed amlodipine 10 mg tablet 10 mg PO DAILY blood pressure 04/02/18 12/16/24 calcium polycarbophil 625 mg tablet 2 tab PO DAILY bowel regulation 04/04/18 12/16/24 cholecalciferol (vitamin D3) 25 1,000 unit PO DAILY Supplement 04/04/18 12/16/24 mcg (1,000 unit) capsule omeprazole 40 mg capsule,delayed 40 mg PO DAILY GERD 06/25/18 12/16/24 release phenylephrine 0.25 %-pramoxine 1 1 applic HI BID rash 06/25/18 12/16/24 %-glycerin-wh.petrolatum rectal cream (Preparation H Maximum Strength) tamsulosin 0.4 mg capsule (Flomax) 0.4 mg PO DAILY prostate 06/25/18 12/16/24 finasteride 5 mg tablet 5 mg PO DAILY urinary retention 03/20/23 12/16/24 rosuvastatin 20 mg tablet 20 mg PO DAILY 07/23/24 12/16/24 Previous Rx's ?Medication ?Instructions ?Recorded phenylephrine 0.25 %-pramoxine 1 1 applic HI TID PRN rectal 12/16/24 %-glycerin-wh.petrolatum rectal discomfort #26 grams cream (Preparation H Maximum Strength) Allergies Allergy/AdvReac Type Severity Reaction Status Date / Time acetaminophen (From Tylenol) Allergy Unknown swelling Verified 09/24/24 09:25 ibuprofen Allergy Unknown Swelling Verified 09/24/24 09:25 naproxen (From Aleve) Allergy Unknown Swelling Verified 09/24/24 09:25 pain pills Allergy swelling Uncoded 09/24/24 09:25 [facility] Disclaimer: The information contained in this section may have been updated after the patient was seen, as this information can be updated by other users. Medical History Enlarged prostate History of gastroesophageal reflux (GERD) History of diverticulitis Hemorrhoid History of cataract Allergies Hypertension Hyperlipidemia Surgical History History of colonoscopy History of cataract surgery History of removal of cyst RIGHT HAND Family History Other Family history of diabetes mellitus type II No significant family history Social History Smoking Status: Never smoker alcohol intake: never counseling provided: none substance use type: denies use current occupational status: employed Travel in the last 8 weeks: None household members: spouse housing: house current occupation: [employer] caffeine: Yes Have you lived/traveled outside [place] in past 30 days?: No Contact w/someone who lives/traveled outside US past 30 days?: No Exposure to someone with infectious disease in past 14 days?: No Do you have a fever (greater than 100.4 F or 38 C)?: No Have you tested positive for COVID-19: No Exposed to someone with COVID-19 in past 14 days?: No Do you have a sore throat?: No Do you have a cough?: No Do you have any weakness?: No Do you have any diarrhea?: No Are you experiencing any unusual bleeding?: No Do you have any muscle aches/pain?: No Do you have any abdominal pain?: No Are you experiencing loss of taste or smell?: No Other Medical History Have you received the Flu Vaccine for this season: Yes Have you received the Pneumonia Vaccine: No ROS Obtained: Yes All systems reviewed & no additional complaints except as documented Physical Exam General General appearance: alert Head Head exam: atraumatic and normocephalic Eye Eye exam: Present normal appearance, PERRL and EOMI Neck Neck exam: Present normal inspection, full ROM and trachea midline Respiratory Respiratory exam: Absent respiratory distress, wheezes, stridor, accessory muscle use or prolonged expiratory phase Cardiovascular Cardiovascular exam: Present other (Pulses equal symmetric in upper and lower extremities) Abdominal Exam Abdominal exam: Present soft; Absent distention, tenderness or pulsatile mass Rectal Exam Rectal exam: Present other (Pretty tender. Large external hemorrhoids, nonthrombosed. Prolapsed internal hemorrhoid. No active bleeding.) Extremities Exam Extremities exam: Absent edema Neurological Exam Neurological exam: Present alert, oriented X3 and CN II-XII intact; Absent motor sensory deficit Skin Skin exam: Present warm and dry; Absent diaphoresis or erythema Medical Decision Making Medical Records Medical records reviewed: Yes I reviewed the patient's medical records. Screening: Per USPSTF and CDC recommendations, given the prevalence of disease in our region, it is our hospital?s policy to screen for HIV and viral Hepatitis for all patients aged 18 and over and those with ongoing risk factors. Myron Inquiry Pt receiving controlled substance: No Myron was queried for this patient: No Vital Signs: 12/16/24 21:28 12/16/24 21:53 12/16/24 22:30 Temperature 98.2 F 98.1 F Temperature Source Oral Pulse Rate 67 65 Pulse Rate [Left Radial] 83 Respiratory Rate 16 16 Blood Pressure 126/74 134/79 Blood Pressure [Right Arm] 140/80 Blood Pressure Mean [Right Arm] 100 Blood Pressure Source [Right Arm] Automatic Cuff Blood Pressure Position Sitting Blood Pressure Position [Right Arm] Sitting 02 Sat by Pulse Oximetry 98 95 95 Oxygen Delivery Method Room Air Room Air Orders (Tests/Meds): ED MEDICATIONS Discontinued Medications Generic Name Dose Route Start Last Admin Trade Name Freq PRN Reason Stop Dose Admin Cocaine HCl 1 ml 12/16/24 21:55 12/16/24 22:03 Cocaine 4% Topical Soln 4ml Bottle TP 12/16/24 21:56 1 ml ONCE ONE Administration Epinephrine HCl 1 mg 12/16/24 21:55 12/16/24 22:04 Epinephrine 1 Mg/Ml Ampul TP 12/16/24 21:56 1 mg ONCE ONE Administration Lidocaine HCl 1 ml 12/16/24 21:55 12/16/24 22:03 Lidocaine 2% Urojet 10ml TP 12/16/24 21:56 1 ml ONCE ONE Administration ORDERS Category Date Time Status HIV Combo Routine Lab 12/16/24 21:53 Ordered Hepatitis C Ab Qual. W/ RFX Routine Lab 12/16/24 21:53 Ordered Medical Decision Narrative: This is a 64-year-old male with history of hemorrhoids presenting with hemorrhoid pain and bleeding. States this been getting worse for the last 2 days. No clots, same amount of bleeding as he is used to, but pain is crescendo in nature. Has been intermittently taking his stool softeners, using 2 different creams intermittently on hemorrhoids as well. No fevers or chills, nausea or vomiting. Last bowel movement was today and was soft, no pellets and no straining. Came in for further evaluation. History was obtained via conversation with patient and . On arrival, patient hemodynamically stable, alert, oriented x4, appropriate, GCS 15, moving all extremities spontaneously, pupils equal and reactive to light. Full physical exam performed and significant for patient no acute distress speaking full sentences. Regarding rectal exam, he does have pretty significant tenderness. Large nonthrombosed external hemorrhoids that are fluctuant. He does have a prolapsed internal hemorrhoid as well. Differential includes internal versus external hemorrhoids, thrombosed hemorrhoid, among others. Patient was given topical lac (lidocaine, epinephrine, cocaine) for symptomatic management and correction of underlying abnormalities. Workup was considered, but patient hemodynamically stable, nontachycardic, very well appearing clinically. I feel this is likely sales representative graphic art of patient's hemorrhoid pain acute on chronic. Reevaluation, patient states his pain is significantly better, but still there. Recommended he maintain follow-up with general surgery. He has seen general surgery in the past, did not have any recommendations for intervention at that time, however now hemorrhoids are larger, more painful. Recommended he continue with stool softeners, sitz bath's, as well as topicals. Patient voiced his understanding. Given patient presentation, workup, history, this most likely represents painful hemorrhoids. Because patient at baseline without signs or symptoms of clinical decompensation, deemed appropriate for discharge. Results were relayed to patient who voiced understanding and were agreeable to outpatient management and follow up. I discussed my clinical impression with patient and answered all questions. At this time, the evidence for any other entities in the differential is insufficient to warrant any further testing or ED observation. This was explained as well. Advisory was given that persistent or worsening symptoms require further evaluation. I confirmed the understanding of this d iscussion. Boiler Operator Helper disclaimer Much of this encounter note is an electronic compressor operator spoken language to printed text. Electronic compressor operator of the spoken language may permit errors. Although I have reviewed the note, some errors may still exist. Critical Care Critical Care Time Critical Care Time: No
--- NOTE | 2024-12-16 22:12 | PC.NURSE ---
Patient came into ED for bleeding hemorrhoids after having 6 bowel movements yesterday 12/15, Patient started to bleed today after intial bowel movement. Followed up by 2 additional for a total of 3. Patient stated that he has deaalt with this issue before but it has never been this bad Patient was able to verify all medications and allergies. Patient was AO x4 GCS 15 upon arrivival. Vitals were stable. Patient stated no other compliants or ailments this date.
[2024-12-16 22:30] VITALS: BP 134/79; PULSE 65; O2SAT 95
[2024-12-16 22:56] VITALS: BP 141/86; PULSE 60; RESP 16; TEMP 36.7
== END 2024-12-16 22:58 | disposition home or self-care (01) ==
PROVIDERS: Emergency Provider Emergency Medicine; PCP Internal Medicine Adolescent Medicine
DX: K92.1 Melena (principal); K64.8 Other hemorrhoids; K62.89 Other specified diseases of anus and rectum
CPT/HCPCS: 96374; 99283; J0171

== ENCOUNTER 2024-12-17 12:07 | Outpatient (CLI) | payer MEDICARE, MEDICAID, SELFPAY ==
--- NOTE | 2024-12-17 12:38 | ECG_ITS ---
APPROVED REPORT Exam: Resting ECG HR:69 bpm ECG Measurements Heart Rate 69 AXES MO 163 P 56 QRSd 93 QRS 42 QT 385 T 61 QTc 403 Conclusion SINUS RHYTHM NORMAL ECG UNCONFIRMED REPORT Electronically signed by : Win Stearns MD 12/20/2024 08:53:34
[2024-12-17 12:52] LABS: Basophils % 0.4 % (0.1-2.0); Eosinophils # 0.1 K/mm3 (0.0-0.4); Eosinophils % 0.7 % (0.1-12.0); Hematocrit 44.9 % (42.0-52.0); Hemoglobin 15.1 g/dL (14.1-18.0); Lymphocytes # 1.5 K/mm3 (0.7-4.5); Lymphocytes % 17.7 % (10-50); Mean Corpuscular HGB Conc 33.6 g/dL (31.8-35.4); Mean Corpuscular Hemoglobin 28.7 pg (27.0-31.2); Mean Corpuscular Volume 85.4 fl (80-94); Mean Platelet Volume 10.3 fl (7.4-10.4); Monocytes # 0.5 K/mm3 (0.1-1.0); Monocytes % 6.2 % (1.7-9.3); Neutrophils # 6.3 K/mm3 (1.8-7.8); Neutrophils % 74.9 % (37.0-80.0); Platelet Count 239 K/mm3 (142-424); Red Blood Count 5.26 M/mm3 (4.60-6.20); Red Cell Distribution Width 13.4 % (11.5-17.5); White Blood Count 8.4 K/mm3 (4.8-10.8)
[2024-12-17 13:16] LABS: Anion Gap 18.2 mEq/L (5-15); Blood Urea Nitrogen 18 mg/dl (9-20); Calcium 9.5 mg/dl (8.4-10.2); Carbon Dioxide 25 mmol/L (22.0-30.0); Chloride 101 mmol/L (98-107); Estimated Glomerular Filt Rate 85 ml/min (>60); GFR (African American) 102 ML/MIN (>60); Glucose 102 mg/dl (74-100); Potassium 4.2 mmoL/L (3.5-5.1); Sodium 140 mmol/L (136-145)
== END 2024-12-17 23:59 | disposition home or self-care (01) ==
LOC: PREOP 12:08
PROVIDERS: PCP Internal Medicine Adolescent Medicine; Visit Provider Surgery
DX: Z01.810 Encounter for preprocedural cardiovascular examination (principal); K64.8 Other hemorrhoids
CPT/HCPCS: 80048; 85025; 93005

== ENCOUNTER 2024-12-18 08:58 | Day surgery (SDC) | payer MEDICARE, SELFPAY ==
[2024-12-17 13:20] VITALS: BMI 24.1
[2024-12-18] VITALS (9 sets, daily range): BP systolic 92–123; BP diastolic 52–89; PULSE 59–82; RESP 12–18; TEMP 36.5–36.9; O2SAT 92–98
--- NOTE | 2024-12-18 10:23 | P.PNANES_ITS ---
[facility] Disclaimer: The information contained in this section may have been updated after the patient was seen, as this information can be updated by other users. Medical History (Updated 12/17/24 @ 12:26 by Todd Felix RN) History of wrist fracture Enlarged prostate History of gastroesophageal reflux (GERD) History of diverticulitis Hemorrhoid History of cataract Allergies Hypertension Hyperlipidemia Surgical History (Updated 12/17/24 @ 12:26 by Todd Felix RN) History of cardiac cath History of colonoscopy History of cataract surgery History of removal of cyst Family History (Updated 12/17/24 @ 12:26 by Todd Felix RN) Other Family history of cancer Family history of diabetes mellitus type II No significant family history Social History (Updated 12/17/24 @ 12:28 by Todd Felix RN) Smoking Status: Never smoker alcohol intake: former counseling provided: none substance use type: denies use current occupational status: employed Travel in the last 8 weeks: None household members: spouse housing: house current occupation: [employer] caffeine: Yes Have you lived/traveled outside US in past 30 days?: No Contact w/someone who lives/traveled outside US past 30 days?: No Exposure to someone with infectious disease in past 14 days?: No Do you have a fever (greater than 100.4 F or 38 C)?: No Have you tested positive for COVID-19: No Exposed to someone with COVID-19 in past 14 days?: No Do you have a sore throat?: No Do you have a cough?: No Do you have any weakness?: No Do you have any diarrhea?: No Are you experiencing any unusual bleeding?: No Do you have any muscle aches/pain?: No Do you have any abdominal pain?: No Are you experiencing loss of taste or smell?: No [facility] Anesthesia Checklist Patient Identification Patient Identification: Arm Band Structural Data Admitted From: Home Planned Operative Procedure/s: I&D Thrombosed Hemorrhoid Consent for Planned Operative Procedure(s) Verified: Yes Verified Documents: Surgical Consent and History and Physical NPO Status Verified Time NPO: 00:00 Additional verifications Anesthesia Reactions: No Hx Blood Transfusions: No Blood Transfusion Reaction: No Airway Assessment Mallampati Score:: Class II C-Spine Mobility Assessed: Yes TMJ Mobility Assessed: Yes Dentition: Edentulous Neurological Assessment Level of Consciousness: Awake, Alert and Appropriate Anesthesia Plan Anesthesia Risk discussed: Yes Anesthesia Plan: Verified ASA Class: II Anesthesia Type: General
--- NOTE | 2024-12-18 11:24 | SUR.PREOP ---
Family and pt updated on POC. No needs voiced @ this time. Call laura w/in reach.
[2024-12-18] MEDS: METRONIDAZ/SOD CHL 500 MG/100 ML PIGGYBACK 100 MG IV (13:16)
[2024-12-18] MEDS: CEFAZOLIN SODIUM 2 GM in 0.9 % SODIUM CHLORIDE 100 ML IV (13:16)
[2024-12-18] MEDS: LIDOCAINE 1% 20ML MDV 20 ML (13:46)
[2024-12-18] MEDS: HYDROCORTISONE 2.5% CREAM 28GM TUBE TP (13:52)
--- NOTE | 2024-12-18 14:01 | P.OP_ITS ---
Date of procedure: 12/18/24 Pre-op Diagnosis:: Thrombosed right lateral hemorrhoid Post-op Diagnosis:: Same Procedure performed:: Incision and drainage of thrombosed right lateral hemorrhoid with excision of overlying cushion/tag Surgeon:: Phani Dorado MD ENVIRONMENTAL HEALTH SANITARIAN:: Kennedy Castellano Anesthesia: local and LMA Estimated blood loss (mL): 15 Operative findings:: Complex lobulated right lateral hemorrhoid with thrombosis and overlying tissue thickening Operative note:: After informed consent was obtained the patient was taken to the operating room and placed in the supine position. General anesthesia with laryngeal mask a irway was achieved. He was transferred to a modified lithotomy position. After infiltration with local anesthetic electrocautery was utilized to transect through the superficial tissue along the lateral margin of the complex lobulated hemorrhoid. Some hematoma was evacuated; however, complete evacuation could not be achieved secondary to fairly severe thickening of the overlying tissue. The decision was made to excise the overlying thickened skin/mucosa. Electrocautery was utilized to transect the cushion/tag margin circumferentially and the tissue was passed off for pathologic evaluation. Electrocautery was then utilized to achieve hemostasis. Proctosol-coated Gelfoam was placed in the anal canal and dressings were applied. The patient was transferred to recovery in stable condition after removal of his laryngeal mask airway. Condition: stable Disposition: PACU Specimens:: Hemorrhoidal cushion/tag Complications:: No immediate
--- NOTE | 2024-12-18 14:16 | P.PNANES_ITS ---
[facility] Anesthesia Record Part I Anesthesia Record I Intake, IV Amount: 1,000 Hydration: Adequate Estimated blood loss (mL): 5 Urine output (mL): 0 Blood Products used (#): none Blood Pressure: 92/52 SaO2: 93 Pulse Rate: 79 Airway Patency: Patent Respiratory Rate: 16 Temperature: 97.7 F Patient is:: Drowsy and Stable Stable to PACU at:: 14:00
[2024-12-18] MEDS: KETOROLAC 30MG/ML VIAL 15 MG IV (14:26)
--- NOTE | 2024-12-19 12:39 | EXP.ANES.II ---
[facility] Anesthesia Record Part II Anesthesia Record Part II Discharge Time: 14:29 Destination: Surgical Day Care (OP Surgery) PACU nurse assessment reviewed?: Yes Patient Condition:: Good Anesthesia Complications:: None Swallowing reflex intact?: Yes Airway Patency: Patent Cyanosis?: No Blood Pressure: 113/56 SaO2: 96 Respiratory Rate: 16 Pulse Rate: 74 Temperature: 97.9 F Mental Status: Alert & Oriented Pain level:: 0 Nausea and/or vomitting:: None Intake, IV Amount: 0 Hydration: Adequate
[2024-12-19 12:40] VITALS: BP 113/56; PULSE 74; RESP 16; TEMP 36.6; O2SAT 96
== END 2024-12-18 15:02 | disposition home or self-care (01) ==
PROVIDERS: PCP Internal Medicine Adolescent Medicine; Visit Provider Surgery
PROC: (CPT 46320; principal; 2024-12-18 10:25)
DX: K64.5 Perianal venous thrombosis (principal)
CPT/HCPCS: 46320; 96374; J0690; J1100; J1885; J2250; J2405; J3010; J7120

== ENCOUNTER 2025-03-23 12:05 | Emergency (ER) | payer MEDICARE, MEDICAID, SELFPAY ==
[2025-03-23] VITALS (7 sets, daily range): BP systolic 101–128; BP diastolic 60–78; PULSE 72–125; RESP 16–19; TEMP 36.7–36.8; O2SAT 93–100; BMI 24.1
--- NOTE | 2025-03-23 12:13 | ED_ITS ---
<Statement entered by Eloise Law MD - 03/23/25 19:27> I was consulted by the [facility], and we discussed the complexity of problems being addressed. I approved the treatment and management plan for this patient's care in the emergency department, thus performing a substantive portion of the medical decision making. Eloise Law MD Discharge Plan Disposition Patient Disposition: Home, Self-Care Condition: Good Prescriptions Prescriptions: New ondansetron 4 mg tablet,disintegrating 4 mg PO QID PRN (Reason: nausea and vomiting) Qty: 10 0RF ciprofloxacin HCl [Cipro] 500 mg tablet 500 mg PO BID 3 Days Qty: 6 0RF No Action prednisone 10 mg tablet 10 mg PO BID Qty: 10 0RF azithromycin [Zithromax Z-Dany] 250 mg tablet See Rx Instructions PO .COMPLEX Qty: 6 0RF Rx Instructions: For 250 mg dose pack: take 500 mg today (day 1), then 250 mg for 4 days (days 2-5) PO guaifenesin 400 mg tablet 400 mg PO Q4H PRN (Reason: congestion) Qty: 14 0RF tamsulosin [Flomax] 0.4 mg capsule 0.4 mg PO DAILY omeprazole 40 mg capsule,delayed release(DR/EC) 40 mg PO DAILY rosuvastatin 20 mg tablet 20 mg PO DAILY cetirizine 10 mg tablet 10 mg PO DAILY lidocaine 5 % ointment 1 applic topical DAILY Qty: 30 0RF finasteride 5 mg tablet 5 mg PO DAILY Preparation H Maximum Strength 0.25-1 % cream 1 applic OK TID PRN (Reason: rectal discomfort) Qty: 26 1RF coenzyme Q10 30 mg Capsule 50 mg PO DAILY vitamin [id number]-[id number] acid 0.5-1 mg Tablet 1 tab PO DAILY amlodipine 10 MG tablet 10 mg PO DAILY calcium polycarbophil 625 MG tablet 2 tab PO DAILY cholecalciferol (vitamin D3) 1,000 UNIT capsule 1,000 unit PO DAILY Referrals Follow up/Referrals: Win Stearns MD [Primary Care Provider] - See instructions Activity Restrictions/Add. Instructions Additional Instructions/Restrictions: I recommend taking the nausea medicine at the first sign of nausea. I recommend starting with bananas rice applesauce toast and once you tolerate that well advance your diet as tolerated. I have sent 3 days of antibiotics and to your pharmacy as well. If you have persistent new or worsening signs or symptoms follow-up with your PCP return to ER as needed. Clinical Impressions Clinical Impression: Norovirus, E coli enteritis Instructions Patient Instructions: DI for Diarrhea and Traveler's Diarrhea -- Adult, DI for Diarrhea and Traveler's Diarrhea -- Child, DI for Nausea -- Adult, DI for Nausea -- Child Print Language Print Language: Taiwanese Discharge ED Provider: Eloise Law General Adult HPI General Chief complaint: Nausea/Vomiting/Diarrhea Stated complaint: weakness v/d Time Seen by Provider: 03/23/25 12:13 History of Present Illness HPI narrative: Patient presents for 3 days of vomiting and diarrhea. Patient has been unable to keep anything down for 3 days. He reports numerous episodes of vomiting and diarrhea. He has no abdominal pain chest pain shortness of breath fever chills hemoptysis hematochezia melena hematemesis hematuria. Related Data Home Medications ?Medication ?Instructions ?Recorded ?Confirmed amlodipine 10 mg tablet 10 mg PO DAILY blood pressure 04/02/18 03/06/25 calcium polycarbophil 625 mg tablet 2 tab PO DAILY bowel regulation 04/04/18 03/06/25 cholecalciferol (vitamin D3) 25 1,000 unit PO DAILY Supplement 04/04/18 03/06/25 mcg (1,000 unit) capsule omeprazole 40 mg capsule,delayed 40 mg PO DAILY GERD 06/25/18 03/06/25 release tamsulosin 0.4 mg capsule (Flomax) 0.4 mg PO DAILY prostate 06/25/18 03/06/25 finasteride 5 mg tablet 5 mg PO DAILY urinary retention 03/20/23 03/06/25 rosuvastatin 20 mg tablet 20 mg PO DAILY 07/23/24 03/06/25 cetirizine 10 mg tablet 10 mg PO DAILY 12/17/24 03/06/25 coenzyme Q10 30 mg capsule 50 mg PO DAILY 12/17/24 03/06/25 vitamin B12 0.5 mg-folic acid 1 mg 1 tab PO DAILY 12/17/24 03/06/25 tablet Previous Rx's ?Medication ?Instructions ?Recorded phenylephrine 0.25 %-pramoxine 1 1 applic OK TID PRN rectal 12/16/24 %-glycerin-wh.petrolatum rectal discomfort #26 grams cream (Preparation H Maximum Strength) lidocaine 5 % topical ointment 1 applic topical DAILY #30 grams 12/17/24 azithromycin 250 mg tablet See Rx Instructions PO .COMPLEX #6 03/06/25 (Zithromax Z-Dany) tabs guaifenesin 400 mg tablet 400 mg PO Q4H PRN congestion #14 03/06/25 tabs prednisone 10 mg tablet 10 mg PO BID #10 tabs 03/06/25 ciprofloxacin HCl 500 mg tablet 500 mg PO BID 3 days #6 tabs 03/23/25 (Cipro) ondansetron 4 mg disintegrating 4 mg PO QID PRN nausea and 03/23/25 tablet vomiting #10 tabs Allergies Allergy/AdvReac Type Severity Reaction Status Date / Time acetaminophen (From Tylenol) Allergy Unknown swelling Verified 03/06/25 10:06 ibuprofen Allergy Unknown Swelling Verified 03/06/25 10:06 naproxen (From Aleve) Allergy Unknown Swelling Verified 03/06/25 10:06 pain pills Allergy swelling Uncoded 03/06/25 10:06 PFSH PFS Disclaimer: The information contained in this section may have been updated after the patient was seen, as this information can be updated by other users. Medical History Sinusitis History of wrist fracture Enlarged prostate History of gastroesophageal reflux (GERD) History of diverticulitis Hemorrhoid History of cataract Allergies Hypertension Hyperlipidemia Surgical History History of cardiac cath History of colonoscopy History of cataract surgery History of removal of cyst RIGHT HAND Family History Other Family history of cancer Family history of diabetes mellitus type II No significant family history Social History Smoking Status: Never smoker alcohol intake: former counseling provided: none substance use type: denies use current occupational status: employed Travel in the last 8 weeks?: None household members: spouse housing: house current occupation: [employer] caffeine: Yes Have you lived/traveled outside [place] in past 30 days?: No Contact w/someone who lives/traveled outside [place] past 30 days?: No Exposure to someone with infectious disease in past 14 days?: No Do you have a fever (greater than 100.4 F or 38 C)?: No Have you tested positive for COVID-19?: No Exposed to someone with COVID-19 in past 14 days?: No Do you have a sore throat?: No Do you have a cough?: No Do you have any weakness?: Yes Do you have any diarrhea?: Yes Are you experiencing any unusual bleeding?: No Do you have any muscle aches/pain?: No Do you have any abdominal pain?: No Are you experiencing loss of taste or smell?: No Other Medical History Have you received the Flu Vaccine for this season: Yes Have you received the Pneumonia Vaccine: No ROS Obtained: Yes Systems reviewed as appropriate & no additional complaints except as documented Physical Exam General General appearance: alert and in no apparent distress Respiratory Respiratory exam: Present normal lung sounds bilaterally Cardiovascular Cardiovascular exam: Present regular rate Neurological Exam Neurological exam: Present alert and oriented X3 Medical Decision Making Medical Records Medical records reviewed: Yes I reviewed the patient's medical records. Screening: Per USPSTF and CDC recommendations, given the prevalence of disease in our region, it is our hospital?s policy to screen for HIV and viral Hepatitis for all patients aged 18 and over and those with ongoing risk factors. Myron Inquiry Pt receiving controlled substance: No Vital Signs: 03/23/25 12:20 03/23/25 12:21 03/23/25 13:00 Temperature 98.1 F Temperature Source Oral Pulse Rate 113 H 99 H Pulse Rate [Right] 125 H Respiratory Rate 18 16 18 Blood Pressure 128/75 128/75 Blood Pressure [Right Arm] 128/75 Blood Pressure Mean Blood Pressure Mean [Right Arm] 92 Blood Pressure Source [Right Arm] Automatic Cuff Blood Pressure Position [Right Arm] Sitting 02 Sat by Pulse Oximetry 100 94 L 95 Oxygen Delivery Method Room Air 03/23/25 14:17 03/23/25 15:00 03/23/25 15:45 Temperature Temperature Source Pulse Rate 99 H 99 H 96 H Pulse Rate [Right] Respiratory Rate 19 17 16 Blood Pressure 105/75 L 104/72 L 101/60 L Blood Pressure [Right Arm] Blood Pressure Mean 82 Blood Pressure Mean [Right Arm] Blood Pressure Source [Right Arm] Blood Pressure Position [Right Arm] 02 Sat by Pulse Oximetry 93 L 95 95 Oxygen Delivery Method Room Air Room Air Lab Data Lab results reviewed: Yes I reviewed the patient's lab results. Lab Results 03/23/25 12:38: WBC 19.8 H, RBC 5.61, Hgb 16.3, Hct 49.6, MCV 88.4, MCH 29.1, MCHC 32.9, RDW 13.6, Plt Count 192, MPV 10.4, Neut % (Auto) 89.2 H, Lymph % (Auto) 3.2 L, [place] % (Auto) 6.6, Eos % (Auto) 0.0 L, Baso % (Auto) 0.2, Neut # (Auto) 17.7 H, Lymph # (Auto) 0.6 L, [place] # (Auto) 1.3 H, Eos # (Auto) 0.0, Baso # (Auto) 0.0, Sodium 135 L, Potassium 3.9, Chloride 104, Carbon Dioxide 24, Anion Gap 10.9, BUN 26 H, Creatinine 1.30 H, Estimated Creat Clear 62, Estimated GFR 55 L, Est GFR ( Amer) 67, Glucose 128 H, Lactate 2.4 H, Calcium 9.1, Magnesium 1.7, Total Bilirubin 1.3, AST 32, ALT 26, Alkaline Phosphatase 74, Total Protein 7.7, Albumin 4.5, Globulin 3.2, Albumin/Globulin Ratio 1.4, Lipase 43, Procalcitonin 6.11 H 03/23/25 12:54: Urine Color Dennise, Urine Appearance Slightly cloudy, Urine pH 6.0, Ur Specific [place] >= 1.030, Urine Protein 2+ A, Urine Glucose (UA) Negative, Urine Ketones Trace, Urine Blood Negative, Urine Nitrate Negative, Urine Bilirubin Negative, Urine Urobilinogen 1.0, Ur Leukocyte Esterase Negative, Urine RBC None, Urine WBC 5-10, Ur Squamous Epith Cells 3-5, Urine Bacteria Trace, Urine Mucus 1+ 03/23/25 13:27: Stl Aeromonas (PCR) TNP, Stl C. cayetanensis PCR Not detected, Stool Rotavirus (PCR) Not detected, Stl Adenov F 40/41 PCR Not detected, Stool Astrovirus (PCR) Not detected, Stool Campylobacter PCR Not detected, Stl C.difficile Tox PCR Not detected, Stool Cryptosporidium PCR Not detected, Stl E.coli Shiga Tox PCR Not detected, Stool E coli O157 PCR Not detected, Stl Enterotoxigenic E PCR Not detected, Stool EPEC (PCR) Not detected, Stool EAEC (PCR) Detected A, Stl E. histolytica PCR Not detected, Stool Giardia Lamblia PCR Not detected, Stool Salmonella PCR Not detected, Stool Sapovirus (PCR) Not detected, Stl P. shigelloides PCR Not detected, Stl Shigella/EIEC PCR Not detected, St Y.enterocolitica PCR Not detected, Stool Vibrio (PCR) Not detected, Stl Vibrio cholerae PCR Not detected, Stl Norovirus GI/GII PCR Detected A 03/23/25 12:38 03/23/25 12:38 Orders (Tests/Meds): ED MEDICATIONS Generic Name Dose Route Start Last Admin Trade Name Freq PRN Reason Stop Dose Admin Sodium Chloride 2,260 mls @ 1,130 mls/hr 03/23/25 15:26 03/23/25 16:00 Sod Chlor 0.9% 1000ml Bag 30 ml/kg infuse over 2 hr (2260 ml) 03/23/25 17:25 1,130 mls/hr IV Administration .Q2H ONE Discontinued Medications Generic Name Dose Route Start Last Admin Trade Name Freq PRN Reason Stop Dose Admin Sodium Chloride 1,000 mls @ 999 mls/hr 03/23/25 15:25 03/23/25 15:57 Sod Chlor 0.9% 1000ml Bag IV 03/23/25 16:25 999 mls/hr .Q1H1M ONE Administration Ondansetron HCl 4 mg 03/23/25 12:21 03/23/25 12:44 Ondansetron 4mg/2ml Vial IV 03/23/25 12:22 4 mg ONCE ONE Administration ORDERS Category Date Time Status CBC w/Auto Diff [Complete Blood Count Auto Diff] Stat Lab 03/23/25 12:38 Completed CMP [Comprehensive Metabolic Panel] Stat Lab 03/23/25 12:38 Completed Diarrhea 23 Panel, PCR Stat Lab 03/23/25 13:27 Completed Lactic Acid Follow Up (RFLX 1) Stat Lab 03/23/25 16:44 Ordered Lactic Acid Stat Lab 03/23/25 12:38 Completed Lipase Stat Lab 03/23/25 12:38 Completed Magnesium Stat Lab 03/23/25 12:38 Completed Procalcitonin Stat Lab 03/23/25 12:38 Completed UA [Urinalysis and Microscopic] Stat Lab 03/23/25 12:54 Completed Blood Culture Stat Micro 03/23/25 15:54 Received Tissue Perfus/Sepsis Re-Eval Sepsis Re-Evaluation Performed: Yes Date Performed: 03/23/25 Time Performed: 17:10 Medical Decision Narrative: In summary patient is a 63-year-old male who presents to the emergency department for evaluation of 3 days of vomiting and diarrhea. Patient is initially normotensive with a blood pressure 128/75 tachycardic at 125 with sinus tachycardia on the bedside monitor breathing 18 times a minute satting 100% on room air upon arrival, afebrile at 98.1. Physical exam is remarkable for clear breath sounds no increased work of breathing or adventitious sounds, heart sounds are rapid but regular with no murmurs gallops rubs or thrills, abdomen is soft nontender no rebound or guarding no rigidity with bowel sounds being hyperactive.. Differential diagnosis includes gastroenteritis versus bowel obstruction although less likely consider. Initial workup will be conducted with hematologic labs twelve-lead EKG. Initial interventions include sepsis bolus given his tachycardia. Initial workup reviewed by me and his white count is 19.8 with a normal H&H and an absolute neutrophil count of 17.7 sodium 135 BUN 26 creatinine 1.3 GFR 55 glucose 128 lactate was 2.4 procalcitonin was 6.11 urinalysis was bland and diarrhea panel was positive both for EAEC as well as norovirus. Upon repeat evaluation patient was able to tolerate oral intake and his heart rate did come down to 96. Given this patient is appropriate for discharge with prescription for Cipro twice daily for 3 days sent to his pharmacy and antiemetics and close follow-up with his PCP for persistent new or worsening signs or symptoms. Patient verbalized understanding agreement. Critical Care Critical Care Time Critical Care Time: Yes Attestation: On 03/23/25, the high probability of a clinically significant, sudden or life threatening deterioration of the following system(s) required my full and direct attention, intervention and personal management. The time I documented below is in addition to time spent performing reported procedures but includes the following listed in this critical care notation. Total Time Total Critical Care Time: 30
--- NOTE | 2025-03-23 12:39 | ECG_ITS ---
APPROVED REPORT Exam: Resting ECG HR:105 bpm ECG Measurements Heart Rate 105 AXES AL 148 P 66 QRSd 86 QRS 31 QT 317 T 56 QTc 378 Conclusion SINUS TACHYCARDIA POSSIBLE LEFT ATRIAL ENLARGEMENT [-0.1mV P-WAVE IN V1/V2] ABNORMAL RHYTHM ECG UNCONFIRMED REPORT Electronically signed by : Eloise Law, 03/23/2025 17:00:19
[2025-03-23] MEDS: ONDANSETRON 4MG/2ML VIAL 4 MG IV (12:44)
[2025-03-23 12:50] LABS: Basophils % 0.2 % (0.1-2.0); Hematocrit 49.6 % (42.0-52.0); Hemoglobin 16.3 g/dL (14.1-18.0); Immature Granulocytes # 0.16 10^3uL; Immature Granulocytes % 0.8 %; Lymphocytes # 0.6 K/mm3 (0.7-4.5); Lymphocytes % 3.2 % (10-50); Mean Corpuscular HGB Conc 32.9 g/dL (31.8-35.4); Mean Corpuscular Hemoglobin 29.1 pg (27.0-31.2); Mean Corpuscular Volume 88.4 fl (80-94); Mean Platelet Volume 10.4 fl (7.4-10.4); Monocytes # 1.3 K/mm3 (0.1-1.0); Monocytes % 6.6 % (1.7-9.3); Neutrophils # 17.7 K/mm3 (1.8-7.8); Neutrophils % 89.2 % (37.0-80.0); Nucleated Red Blood Cells # 0 10^3/uL; Nucleated Red Blood Cells % 0 %; Platelet Count 192 K/mm3 (142-424); Red Blood Count 5.61 M/mm3 (4.60-6.20); Red Cell Distribution Width 13.6 % (11.5-17.5); Red Cell Distribution Width-SD 43.8 fL; White Blood Count 19.8 K/mm3 (4.8-10.8)
[2025-03-23 12:54] LABS: Albumin Level 4.5 g/dl (3.5-5.0); Chloride 104 mmol/L (98-107); Potassium 3.9 mmoL/L (3.5-5.1); Sodium 135 mmol/L (136-145)
[2025-03-23 12:57] LABS: Alanine Aminotransferase 26 U/L (12-78); Albumin/Globulin Ratio 1.4 (1.1-1.8); Alkaline Phosphatase 74 U/L (38-126); Anion Gap 10.9 mEq/L (5-15); Aspartate Amino Transferase 32 U/L (17-59); Bilirubin,Total 1.3 mg/dl (0.2-1.3); Blood Urea Nitrogen 26 mg/dl (9-20); Calcium 9.1 mg/dl (8.4-10.2); Carbon Dioxide 24 mmol/L (22.0-30.0); Creatinine Clearance Estimated 62 mL/min (50-200); Estimated Glomerular Filt Rate 55 ml/min (>60); GFR (African American) 67 ML/MIN (>60); Globulin 3.2 g/dL (1.3-3.2); Glucose 128 mg/dl (74-100); Lipase 43 U/L (23-300); Magnesium 1.7 mg/dl (1.6-2.3); Total Protein,Serum 7.7 g/dl (6.3-8.2)
[2025-03-23 13:04] LABS: Lactic Acid 2.4 mmol/L (0.7-2.1)
[2025-03-23 13:06] LABS: Microscopic, Urine URINE MICROSCOPIC (MICROSCOPIC)
[2025-03-23 13:19] LABS: Blood, Urine Negative (Negative); Glucose,Urine (UA) Negative (Negative); Ketones,Urine TRACE (Negative); Leukocyte Esterase,Urine Negative (Negative); Nitrate,Urine Negative (Negative); Protein,Urine 2+ (Negative); Specific Gravity, Urine >= 1.030 (1.005-1.030)
[2025-03-23 13:30] LABS: Adenovirus F 40/41, stool Not Detected (NotDetected); Astrovirus Not Detected (NotDetected); Campylobacter Not Detected (NotDetected); Clostridium Difficile A/B, PCR Not Detected (NotDetected); Cryptosporidium Not Detected (NotDetected); Cyclospora Cayetanesis Not Detected (NotDetected); Entamoeba histolytica Not Detected (NotDetected); Enteropathogenic E coli Not Detected (NotDetected); Enterotoxigenic E coli Not Detected (NotDetected); Giardia lamblia Not Detected (NotDetected); Plesimonas Shigalloides, PCR Not Detected (NotDetected); Rotavirus A Not Detected (NotDetected); Salmonella, PCR Not Detected (NotDetected); Sapovirus Not Detected (NotDetected); Shiga-like toxin E coli Not Detected (NotDetected); Shigella Enterovasive E coli Not Detected (NotDetected); Vibrio Cholerae Not Detected (NotDetected); Vibrio, PCR Not Detected (NotDetected); Yersinia Entercolitica, PCR Not Detected (NotDetected)
[2025-03-23 13:31] LABS: Appearance,Urine Slightly Cloudy (Clear); Bilirubin,Urine Negative (Negative); Color,Urine Amber (Yellow)
[2025-03-23 13:50] LABS: Bacteria,Urine Trace /lpf; Mucus,Urine 1+ /lpf
[2025-03-23 15:13] LABS: Procalcitonin 6.11 ng/mL (0.0-2.0)
[2025-03-23] MEDS: 0.9 % SODIUM CHLORIDE 1000ML 1,000 ML 999 ML IV (15:57)
[2025-03-23] MEDS: 0.9 % SODIUM CHLORIDE 1000ML 2,260 ML 1130 ML IV (16:00)
--- NOTE | 2025-03-23 16:18 | PC.NURSE ---
Patient given a sandwich and chips with a water. Advised them that Don will be in when the lab results come in .
[2025-03-23 16:44] LABS: Reflex Lactic Add Lactic Reflex
[2025-03-23 16:55] LABS: Enteroaggregative E coli Detected (NotDetected); Norovirus Detected (NotDetected)
--- NOTE | 2025-03-23 16:56 | PC.NURSE ---
Diarrhea panel results relayed to MD Daryl at this time by AngelaRN
== END 2025-03-23 17:29 | disposition home or self-care (01) ==
PROVIDERS: Physician Assistant; Emergency Provider Student in an Organized Health Care Education/Training Program; PCP Internal Medicine Adolescent Medicine
DX: A08.11 Acute gastroenteropathy due to Norwalk agent (principal); A04.4 Other intestinal Escherichia coli infections; R74.02 Elevation of levels of lactic acid dehydrogenase [LDH]; R00.0 Tachycardia, unspecified; R11.2 Nausea with vomiting, unspecified; R19.7 Diarrhea, unspecified; R53.1 Weakness
CPT/HCPCS: 80053; 81001; 83605; 83690; 83735; 84145; 85025; 87040; 87507; 93005; 96361; 96374; 99285; J2405; J7030

== ENCOUNTER 2025-04-13 11:37 | Outpatient (CLI) | payer MEDICARE, MEDICAID, SELFPAY ==
--- NOTE | 2025-04-13 11:40 | XR_ITS ---
FINAL REPORT CLINICAL HISTORY: cough FINDINGS: 2 views of the chest were obtained . The heart is normal in size. The mediastinum is within normal limits. The lungs are clear. There is no pneumothorax. Osseous structures are unremarkable. IMPRESSION: No acute cardiopulmonary process. Reviewed, Interpreted and Dictated by Derek Alvarado MD Transcribed by Deidra Grimaldo Authenticated and [facility]
== END 2025-04-13 23:59 | disposition home or self-care (01) ==
LOC: RAD 11:38
PROVIDERS: PCP Internal Medicine Adolescent Medicine; Visit Provider Student in an Organized Health Care Education/Training Program
DX: R05.9 Cough, unspecified (principal)
CPT/HCPCS: 71046